=== PATIENT | female | born 1965 | race Caucasian/White ===

== ENCOUNTER → 2023-07-14 07:42 | Outpatient (REF) | payer OTHER, SELFPAY | LOC: HWRAD 07:42 | PROVIDERS: ATTENDING PHYSICIAN Nurse Practitioner; FAMILY PHYSICIAN Nurse Practitioner Adult Health | DX: Z15.01 Genetic susceptibility to malignant neoplasm of breast (principal); Z15.89 Genetic susceptibility to other disease; Z15.09 Genetic susceptibility to other malignant neoplasm | CPT/HCPCS: 76830; 76856 ==

== ENCOUNTER → 2025-03-21 08:40 | Outpatient (REF) | payer OTHER, SELFPAY | LOC: RAD 08:40 | PROVIDERS: ATTENDING PHYSICIAN Registered Nurse Oncology; FAMILY PHYSICIAN Nurse Practitioner Adult Health | DX: M89.28 Other disorders of bone development and growth, other site (principal) | CPT/HCPCS: 77080 ==